=== PATIENT | female | born 1990 | race Caucasian/White ===

== ENCOUNTER 2023-01-28 21:27 | Emergency (ER) | payer MEDICAID, SELFPAY ==
[2023-01-28 21:29] VITALS: BP 140/98; PULSE 109; RESP 18; TEMP 36.8; O2SAT 97; BMI 39.5
--- NOTE | 2023-01-28 21:29 | ED_ITS ---
HPI - Skin/Abscess/Foreign Bdy General Chief complaint: Skin/Abscess/Foreign Body Stated complaint: RASH Time Seen by Provider: 01/28/23 21:28 History of Present Illness HPI narrative: Patient is a 32-year-old female who presents to the emergency department for 6- day history of rash to the left side of the face. Patient states she initially developed painful red areas on the left mandible under the lip and has now developed lesions of the left maxilla and of the left hairline at the scalp. She picked at the areas to the chin, there was no purulent drainage. She is not concerned for . She reports significant pain to the left ear. She has not had any fevers or upper respiratory symptoms. She has not had any visual changes, eye pain, loss of vision. Related Data Previous Rx's Medication Instructions Recorded acyclovir 800 mg tablet See Rx Instructions .Route 01/28/23 .COMPLEX #35 tabs cephalexin 500 mg capsule 500 mg PO Q8H 10 days #30 caps 01/28/23 hydrocodone 5 mg-acetaminophen 325 1 tab PO Q6H PRN pain #15 tabs 01/28/23 mg tablet prednisone 20 mg tablet 60 mg PO DAILY 3 days #9 tabs 01/28/23 promethazine 25 mg tablet 25 mg PO Q6H PRN nausea and 01/28/23 vomiting #12 tabs Allergies Allergy/AdvReac Type Severity Reaction Status Date / Time amoxicillin Allergy Intermediate Verified 01/28/23 21:33 penicillins Allergy Intermediate Uncoded 01/28/23 21:33 Review of Systems ROS Constitutional Denies: fever or chills Eyes Denies: change in vision Ears, nose, mouth, and throat Denies: throat pain or nasal congestion Gastrointestinal Denies: nausea or vomiting Musculoskeletal Denies: back pain Psychiatric Denies: anxiety Hematologic/Lymphatic Denies: easy bruising Allergic/Immunologic Denies: hives Exam Narrative Exam Narrative: Gen.: Awake, alert, in no distress Head: Normocephalic, atraumatic ENT: Moist mucous membranes; left TM is clear; patient with erythematous vesicular rash extending from the left mandible across the left maxilla and minimally of the hairline of the left forehead. Lesions to the left mandible are scabbed. Minimal surrounding erythema, no active drainage or significant open wounds. No significant swelling of the eyelids, normal extraocular muscle motion, no extension of the rash to the mucous membranes. No blistering or peeling of the skin noted. Respiratory: No respiratory distress Extremities: Moves extremities equally Psych: Normal mood and affect Neuro: No focal neuro deficit Skin: Warm, dry, intact Constitutional Vital Signs, click to edit/add: Last Vital Signs Temp 98.2 F 01/28/23 21:29 Pulse 109 H 01/28/23 21:29 Resp 18 01/28/23 21:29 BP 140/98 H 01/28/23 21:29 Pulse Ox 97 01/28/23 21:29 Course Vital Signs Vital signs: Vital Signs Temperature 98.2 F 01/28/23 21:29 Pulse Rate 109 H 01/28/23 21:29 Respiratory Rate 18 01/28/23 21:29 Blood Pressure 140/98 H 01/28/23 21:29 Pulse Oximetry 97 01/28/23 21:29 Temperature 98.2 F 01/28/23 21:29 Pulse Rate 109 H 01/28/23 21:29 Respiratory Rate 18 01/28/23 21:29 Blood Pressure 140/98 H 01/28/23 21:29 Pulse Oximetry 97 01/28/23 21:29 MDM - Skin/Abscess/Foreign Bdy MDM Narrative Medical decision making narrative: Exam is consistent with shingles following the facial nerve distribution. Patient has no eye involvement at this time. Lesions to the left mandible have been opened by the patient, we will treat with Keflex to prevent impetigo/secondary cellulitis. Patient started on Keflex, acyclovir, prednisone, [place], Phenergan for home. She was instructed to return to the emergency department or immediately see an eye doctor if she has any visual changes, eye pain. She was given primary care follow-up, return to the ER if symptoms change or worsen. Medical Records Attestation: I reviewed the patient's medical records. Discharge Plan Discharge Chief Complaint: Skin/Abscess/Foreign Body Clinical Impression: Herpes zoster, Skin rash Patient Disposition: Home, Self-Care Time of Disposition Decision: 21:47 Condition: Good Prescriptions / Home Meds: New hydrocodone-acetaminophen 5-325 mg tablet 1 tab PO Q6H PRN (Reason: pain) Qty: 15 0RF Rx Instructions: DX: B02.9 cephalexin 500 mg capsule 500 mg PO Q8H 10 Days Qty: 30 0RF acyclovir 800 mg tablet See Rx Instructions .ROUTE .COMPLEX Qty: 35 0RF Rx Instructions: 800 mg orally 5 times a day for 7 days promethazine 25 mg tablet 25 mg PO Q6H PRN (Reason: nausea and vomiting) Qty: 12 0RF prednisone 20 mg tablet 60 mg PO DAILY 3 Days Qty: 9 0RF Instructions: Julius (ED) Stand Alone Forms: Portal Instructions Referrals: Physician,Non-Staff, MD [Primary Care Provider] - 1 week Discharge Date/Time: 01/28/23 22:41
[2023-01-28] MEDS: HYDROCODONE/ACET 5-325 MG TABLET 2 TAB PO (22:07)
[2023-01-28] MEDS: ACYCLOVIR 200 MG CAPSULE 800 MG PO (22:08)
[2023-01-28] MEDS: CEPHALEXIN 500 MG CAPSULE PO (22:11)
[2023-01-28] MEDS: ONDANSETRON 4 MG RAPDIS TABLET SL (22:12)
[2023-01-28] MEDS: PREDNISONE 20 MG TABLET 60 MG PO (22:14)
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
== END 2023-01-28 22:41 | disposition home or self-care (01) ==
PROVIDERS: Emergency Provider Internal Medicine
DX: B02.9 Zoster without complications (principal); R21 Rash and other nonspecific skin eruption
CPT/HCPCS: 99284